=== PATIENT | female | born 1945 | race Two or more races ===

== ENCOUNTER 2022-02-20 00:21 | Inpatient (IN) | payer MEDICARE, OTHER ==
[~2022-02-20] VITALS: Ht 162.6 cm; Wt 103.4 kg
[2022-02-20] MEDS ORDERED: BENZ2TAB7 PO (01:32)
[2022-02-20] MEDS ORDERED: LISI-782 PO (01:32)
[2022-02-20] MEDS ORDERED: SERT25TA PO (01:32)
[2022-02-20] MEDS ORDERED: LEVO125T8 PO (01:32)
[2022-02-20] MEDS ORDERED: ASCO-375 PO (01:32)
[2022-02-20] MEDS ORDERED: RISP1TAB7 PO ×2 (01:32)
[2022-02-20] MEDS ORDERED: PANT40TA49 PO (01:32)
[2022-02-20] MEDS ORDERED: CLON0.5T PO (01:32)
[2022-02-20] MEDS ORDERED: FERR325T28 PO (01:32)
[2022-02-20] MEDS ORDERED: ACET-2154 PO (01:32)
[2022-02-20] MEDS ORDERED: HYDR-4075 PO (01:32)
[2022-02-20] MEDS ORDERED: ASPI81TA31 PO (01:32)
[2022-02-20 01:33] LABS: ALANINE AMINOTRANSFERASE 60 U/L (14-59); ALKALINE PHOSPHATASE 84 U/L (50-136); ASPARTATE AMINOTRANSFERASE 38 U/L (15-37); BILIRUBIN,DIRECT 0.1 mg/dL (0.0-0.2); BILIRUBIN,TOTAL 0.4 mg/dL (0.2-1.0); CARBON DIOXIDE 27 mmol/L (21-32); CHLORIDE 105 mmol/L (98-107); GLUCOSE 119 mg/dL (74-106); POTASSIUM 3.9 mmol/L (3.5-5.1); TOTAL PROTEIN, SERUM 7.6 g/dL (6.4-8.2); UREA NITROGEN, BLOOD 13 mg/dL (7-18)
[2022-02-20 01:42] LABS: THYROID STIMULATING HORMONE 4.659 mIU/mL (0.358-3.740)
[2022-02-20 01:43] LABS: HEMATOCRIT 38.2 % (31.2-41.9); MEAN CORPUSCULAR HEMOGLOBIN 28.6 uug (24.7-32.8); MEAN CORPUSCULAR VOLUME 84.6 fL (75.5-95.3); PLATELET COUNT (AUTO) 246 K/uL (179-408)
[2022-02-20 01:45] LABS: ETHANOL < 3 MG/DL (0-0)
[2022-02-20 01:52] LABS: ACETAMINOPHEN < 2.0 ug/mL (10-30)
[2022-02-20 02:39] LABS: *BILIRUBIN,URIN NEGATIVE (NEGATIVE); *BLOOD, URINE NEGATIVE (NEGATIVE); *CLARITY,URINE CLEAR (CLEAR); *COLOR,URINE YELLOW (YELLOW); *KETONES,URINE NEGATIVE (NEGATIVE); *UROBILINOGEN,URINE 0.2 E.U./dl (NORMAL); LEUKOCYTE ESTERASE ,URINE NEGATIVE (NEGATIVE); NITRITE, URINE NEGATIVE (NEGATIVE); UGLUCOSE NEGATIVE (NEGATIVE)
[2022-02-20 02:55] LABS: *AMPHETAMINE, URINE NEGATIVE (NEGATIVE); *CANNABINOID, URINE NEGATIVE (NEGATIVE); *COCCAINE, URINE NEGATIVE (NEGATIVE); *OPIATE, URINE NEGATIVE (NEGATIVE); *PHENCYCLIDINE SCREEN,URINE NEGATIVE (NEGATIVE)
--- NOTE | 2022-02-20 03:30 | NUR ---
MEDICALLY CLEARED BY DR GARRISON.
[2022-02-20] MEDS ORDERED: ACETAMINOPHEN 325 MG TABLET PO PRN (05:30)
[2022-02-20] MEDS ORDERED: MAG HYDROX/AL HYDROX/SIMETH 30 ML LIQUID UDC PO PRN (05:30)
[2022-02-20] MEDS ORDERED: MAGNESIUM HYDROXIDE 30 ML LIQUID UDC PO PRN (05:30)
[2022-02-20] MEDS ORDERED: BLOOD SUGAR DIAGNOSTIC 1 EACH STRIP VI ONE (05:30)
--- NOTE | 2022-02-20 05:49 | NUR ---
transfered to [facility] via gurny with no distress noted
[2022-02-20 06:34] VITALS: BP 150/65
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
[2022-02-20 07:38] VITALS: BP 144/50
[2022-02-20] MEDS ORDERED: BENZTROPINE MESYLATE 0.5 MG TABLET PO SCH (09:00)
[2022-02-20] MEDS ORDERED: risperiDONE 0.25 MG TABLET PO SCH (09:00)
[2022-02-20] MEDS: BENZTROPINE MESYLATE 1 MG TABLET PO SCH (13:15)
[2022-02-20] MEDS: risperiDONE 1 MG TABLET PO SCH ×2 (13:15→20:23)
[2022-02-20] MEDS: SERTRALINE HCL 50 MG TABLET PO SCH (13:16)
[2022-02-20] MEDS ORDERED: INSULIN REGULAR, HUMAN 300 UNIT/3 ML VIAL SQ PRN (13:30)
[2022-02-20] MEDS ORDERED: DEXTROSE 50% 50 ML DISP.SYRIN IV PRN (13:30)
[2022-02-20 15:51] VITALS: BP 122/48
[2022-02-20] MEDS: BLOOD SUGAR DIAGNOSTIC 1 EACH STRIP VI SCH ×2 (17:48→21:04)
--- NOTE | 2022-02-20 18:21 | NUR ---
GPS: PT SEEN TODAY ON BED, DEPRESSED, WITHDRAWN AND A BIT QUIET. ONLY GOES OUT WHEN ASKING FOR SOMETHING. PT COOPERATIVE WITH CARE. MNO AGGRESSIVE BEHAVIOR NOTED. PT COMPLIANT WITH CARE AND MEDS. SEEN PT HAD A GOOD APPETITE DURING LUNCH. DENIES SI/HI. PT ENCOURAGED MORE TO GET OUT FROM BED AND ATTEND GROUP THERAPY.
[2022-02-20 20:23] VITALS: BP 126/49
[2022-02-20] MEDS: CLONAZEPAM 0.5 MG TABLET PO PRN (21:58)
--- NOTE | 2022-02-20 23:44 | NUR ---
GPS: Pt.is alert to name and place. Guarded,suspicious when approached and when being given bedtime meds. Re-assured prn. Denies SI/HI. Poor insight to present situation. No increased agitation noted. Safety emphasized. Denies pain when asked earlier. Will continue to monitor behavior. Blood sugar checks continues and is compliant so far.
[2022-02-21] MEDS: BLOOD SUGAR DIAGNOSTIC 1 EACH STRIP VI SCH ×4 (06:34→20:21)
[2022-02-21 07:30] VITALS: BP 116/48
[2022-02-21] MEDS: SERTRALINE HCL 50 MG TABLET PO SCH (09:08)
[2022-02-21] MEDS: risperiDONE 1 MG TABLET PO SCH ×2 (09:08→20:23)
[2022-02-21] MEDS: BENZTROPINE MESYLATE 1 MG TABLET PO SCH (09:08)
[2022-02-21] MEDS ORDERED: BENZTROPINE MESYLATE 1 MG TABLET PO SCH (12:00)
[2022-02-21] MEDS: PANTOPRAZOLE SODIUM 40 MG TABLET.DR PO SCH (13:15)
[2022-02-21] MEDS: ASCORBIC ACID 500 MG TABLET PO SCH (13:15)
[2022-02-21] MEDS: FERROUS SULFATE 325 MG TABEC PO SCH (13:15)
[2022-02-21] MEDS: ASPIRIN 81 MG TAB.CHEW PO SCH (13:15)
[2022-02-21] MEDS: LEVOTHYROXINE SODIUM 125 MCG TABLET PO SCH (13:15)
[2022-02-21] MEDS: LISINOPRIL 5 MG TABLET PO SCH (13:15)
[2022-02-21] MEDS: METFORMIN HCL 500 MG TABLET PO SCH ×2 (13:16→18:29)
[2022-02-21 16:00] VITALS: BP 103/42
--- NOTE | 2022-02-21 18:48 | NUR ---
GPS: PT STAYED MOST OF THE TIME AT HER ROOM, QUIET AND DEPRESSED. ENCOURAGED PT TO ATTEND GROUP THERAPY AND PT STATED "NO". WILL ENCOURAGE MORE EVERYDAY. PT COMPLIANT WITH MEDS AND CARE. 14 DAY HOLD FILED TODAY, GIVEN A COPY AND EXPLAINED TO PT.
[2022-02-21 20:33] VITALS: BP 106/45
[2022-02-22] MEDS: LEVOTHYROXINE SODIUM 125 MCG TABLET PO SCH (06:22)
[2022-02-22] MEDS: PANTOPRAZOLE SODIUM 40 MG TABLET.DR PO SCH (06:22)
[2022-02-22] MEDS: BLOOD SUGAR DIAGNOSTIC 1 EACH STRIP VI SCH ×4 (06:30→20:12)
--- NOTE | 2022-02-22 06:42 | NUR ---
GPS: Pt.slept 6.15 last night. Remains guarded,paranoid and suspicious. Isolative and withdrawn. Does not interact with her peers. No increased agitation noted. Blood sugar checks WNL. Safety emphasized.
[2022-02-22 08:00] VITALS: BP 125/61
[2022-02-22] MEDS: METFORMIN HCL 500 MG TABLET PO SCH ×2 (08:07→17:26)
[2022-02-22] MEDS: BENZTROPINE MESYLATE 1 MG TABLET PO SCH (08:37)
[2022-02-22] MEDS: ASPIRIN 81 MG TAB.CHEW PO SCH (08:37)
[2022-02-22] MEDS: risperiDONE 1 MG TABLET PO SCH ×2 (08:37→20:12)
[2022-02-22] MEDS: SERTRALINE HCL 50 MG TABLET PO SCH (08:37)
[2022-02-22] MEDS: ASCORBIC ACID 500 MG TABLET PO SCH (08:37)
[2022-02-22] MEDS: FERROUS SULFATE 325 MG TABEC PO SCH (08:37)
[2022-02-22] MEDS: LISINOPRIL 5 MG TABLET PO SCH (08:43)
[2022-02-22 16:00] VITALS: BP 108/45
--- NOTE | 2022-02-22 17:06 | NUR ---
GPS: PT REMAIN ISOLATIVE AND DEPRESSED. STAYED MOST OF THE TIME AT HER ROOM, ENCOURAGED PATIENT TO ATTEND GROUP THERAPY AND PT STATED REFUSED TO ATTEND. PT COMPLIANT WITH MEDS AND CARE. TOOK SHOWER TO DAY. CONTINUE PLAN OF CARE.
[2022-02-22 19:50] VITALS: BP 112/45
[2022-02-22] MEDS: CLONAZEPAM 0.5 MG TABLET PO PRN (20:12)
--- NOTE | 2022-02-22 20:28 | NUR ---
GPS: Remains paranoid,suspicious,isolative and withdrawn. Refuses to get out of her room when encouraged to. Does not interact with her peers. Denies HI. Takes meds. reluctantly. Safe environment provided. Will continue to monitor.
[2022-02-23] MEDS: PANTOPRAZOLE SODIUM 40 MG TABLET.DR PO SCH (06:25)
[2022-02-23] MEDS: LEVOTHYROXINE SODIUM 125 MCG TABLET PO SCH (06:25)
[2022-02-23] MEDS: BLOOD SUGAR DIAGNOSTIC 1 EACH STRIP VI SCH ×4 (06:32→20:33)
[2022-02-23 07:30] VITALS: BP 116/46
[2022-02-23] MEDS: SERTRALINE HCL 50 MG TABLET PO SCH (08:34)
[2022-02-23] MEDS: BENZTROPINE MESYLATE 1 MG TABLET PO SCH (08:34)
[2022-02-23] MEDS: ASPIRIN 81 MG TAB.CHEW PO SCH (08:34)
[2022-02-23] MEDS: METFORMIN HCL 500 MG TABLET PO SCH ×2 (08:37→17:33)
[2022-02-23] MEDS: FERROUS SULFATE 325 MG TABEC PO SCH (08:37)
[2022-02-23] MEDS: LISINOPRIL 5 MG TABLET PO SCH (08:37)
[2022-02-23] MEDS: risperiDONE 1 MG TABLET PO SCH ×2 (08:37→20:33)
[2022-02-23] MEDS: ASCORBIC ACID 500 MG TABLET PO SCH (08:38)
--- NOTE | 2022-02-23 14:58 | NUR ---
GILDARDO Initial Discharge Note: Patient currently resides at [address] [id number] . GILDARDO will contact the patient's daughter, Dennis Ortiz ([phone]) to discuss pt's discharge plan. Patient states she does not want to return to [facility]. GILDARDO will continue to work with patient, family, and MD to ensure a safe and proper discharge plan.
[2022-02-23 15:13] VITALS: BP 128/58
--- NOTE | 2022-02-23 15:35 | NUR ---
Firearms Report: Tetryl Dissolver Operator completed and submitted a [employer] firearms report for 5150 grave disability and danger to others certifications. A copy of report has been placed in patient chart.
--- NOTE | 2022-02-23 17:59 | NUR ---
Patient had 5250 probable cause hearing today and it was upheld for grave disability .
[2022-02-23] MEDS: TEMAZEPAM 7.5 MG CAPSULE PO PRN (20:33)
[2022-02-23 22:09] VITALS: BP 121/45
--- NOTE | 2022-02-24 04:39 | NUR ---
Received in her room, awake, A&Ox2. She is pleasant upon approached, she is calm and able to make needs known. [id number]. Offered snacks and fluid w/ compliance. She slept most during shift. Closely monitoring observed.
[2022-02-24] MEDS: PANTOPRAZOLE SODIUM 40 MG TABLET.DR PO SCH (06:07)
[2022-02-24] MEDS: LEVOTHYROXINE SODIUM 125 MCG TABLET PO SCH (06:07)
[2022-02-24] MEDS: BLOOD SUGAR DIAGNOSTIC 1 EACH STRIP VI SCH (06:55)
[2022-02-24 07:35] VITALS: BP 131/54
[2022-02-24] MEDS: risperiDONE 1 MG TABLET PO SCH ×2 (08:45→20:25)
[2022-02-24] MEDS: METFORMIN HCL 500 MG TABLET PO SCH ×2 (08:45→17:04)
[2022-02-24] MEDS: ASCORBIC ACID 500 MG TABLET PO SCH (08:45)
[2022-02-24] MEDS: ASPIRIN 81 MG TAB.CHEW PO SCH (08:45)
[2022-02-24] MEDS: LISINOPRIL 5 MG TABLET PO SCH (08:46)
[2022-02-24] MEDS: FERROUS SULFATE 325 MG TABEC PO SCH (08:46)
[2022-02-24] MEDS: SERTRALINE HCL 50 MG TABLET PO SCH (08:46)
[2022-02-24] MEDS: BENZTROPINE MESYLATE 1 MG TABLET PO SCH (08:46)
--- NOTE | 2022-02-24 15:14 | NUR ---
GPS: Nursing Notes: Thought Disorder: Patient is awake and responding to her name, compliant with her medications, eating well at least 75% or more of her meals, isolative and withdrawn in her room, needs a lot prompting to participate in therapeutic groups, no interactions with peers, unable to formulate a viable plan for self care, no episode of violent behavior noted, continue to monitor for safety, slightly paranoid at times, internally preoccupied, but compliant with her care, continue with treatment plan.
[2022-02-24 16:25] VITALS: BP 117/58
[2022-02-24 20:13] VITALS: BP 103/41
[2022-02-24] MEDS: TEMAZEPAM 7.5 MG CAPSULE PO PRN (20:25)
--- NOTE | 2022-02-25 03:50 | NUR ---
GPS NOTES: Patient is quiet, withdrawn and guarded. Interacts when engaged. She is calm and approachable. Patient request for fluids and snacks, good appetite noted. She is med compliant. Prn temazepam given. Slept well during shift. Frequent monitoring in place.
[2022-02-25] MEDS: PANTOPRAZOLE SODIUM 40 MG TABLET.DR PO SCH (06:16)
[2022-02-25] MEDS: LEVOTHYROXINE SODIUM 125 MCG TABLET PO SCH (06:16)
[2022-02-25 07:57] VITALS: BP 156/68
[2022-02-25] MEDS: ASCORBIC ACID 500 MG TABLET PO SCH (08:33)
[2022-02-25] MEDS: SERTRALINE HCL 50 MG TABLET PO SCH (08:33)
[2022-02-25] MEDS: METFORMIN HCL 500 MG TABLET PO SCH ×2 (08:33→17:22)
[2022-02-25] MEDS: risperiDONE 1 MG TABLET PO SCH ×2 (08:33→20:23)
[2022-02-25] MEDS: FERROUS SULFATE 325 MG TABEC PO SCH (08:34)
[2022-02-25] MEDS: ASPIRIN 81 MG TAB.CHEW PO SCH (08:34)
[2022-02-25] MEDS: BENZTROPINE MESYLATE 1 MG TABLET PO SCH (08:34)
[2022-02-25] MEDS: LISINOPRIL 5 MG TABLET PO SCH (08:34)
--- NOTE | 2022-02-25 14:52 | NUR ---
GPS: Nursing Notes: Thought Disorder: Patient is awake and responding to her name, isolative and withdrawn in her room, when asked about her coughing during the night, stated "I do not cough... I am fine.. Other person mentally is making me cough.. No, I am not hearing voices...", redirected during shift, low energy level, depressed mood and flat affect, needs a lot of prompting to participate in therapeutic groups, compliant with her medications, eating at least 75% or more of her meal trays, no interactions with peers, continue to monitor for safety, continue with treatment plan.
[2022-02-25 17:47] VITALS: BP 104/42
[2022-02-25 20:34] VITALS: BP 123/46
[2022-02-26] MEDS: LEVOTHYROXINE SODIUM 125 MCG TABLET PO SCH (06:40)
[2022-02-26] MEDS: PANTOPRAZOLE SODIUM 40 MG TABLET.DR PO SCH (06:40)
[2022-02-26 07:30] VITALS: BP 139/51
[2022-02-26] MEDS: METFORMIN HCL 500 MG TABLET PO SCH ×2 (08:44→17:11)
[2022-02-26] MEDS: ASPIRIN 81 MG TAB.CHEW PO SCH (08:44)
[2022-02-26] MEDS: FERROUS SULFATE 325 MG TABEC PO SCH (08:44)
[2022-02-26] MEDS: BENZTROPINE MESYLATE 1 MG TABLET PO SCH (08:45)
[2022-02-26] MEDS: risperiDONE 1 MG TABLET PO SCH ×2 (08:45→20:04)
[2022-02-26] MEDS: LISINOPRIL 5 MG TABLET PO SCH (08:45)
[2022-02-26] MEDS: ASCORBIC ACID 500 MG TABLET PO SCH (08:45)
[2022-02-26] MEDS: SERTRALINE HCL 50 MG TABLET PO SCH (08:45)
--- NOTE | 2022-02-26 12:25 | NUR ---
GPS: Nursing Notes: Thought Disorder: Patient is awake and responding to her name, isolative and withdrawn in her room, resistant with nursing care, depressed mood and flat affect, no interactions with peers, suspicious, but compliant with her medications, eating at least 75% or more of her meal trays, stated to staff that "she does not have a cough, but somebody mentally is making her cough at times," redirected during shift, unable to formulate a viable plan for self care, continue to monitor for safety, continue with treatment plan.
[2022-02-26 15:09] VITALS: BP 112/50
[2022-02-26 20:00] VITALS: BP 121/48
[2022-02-27] MEDS: LEVOTHYROXINE SODIUM 125 MCG TABLET PO SCH (06:26)
[2022-02-27] MEDS: PANTOPRAZOLE SODIUM 40 MG TABLET.DR PO SCH (06:26)
[2022-02-27 07:30] VITALS: BP 115/47
[2022-02-27] MEDS: METFORMIN HCL 500 MG TABLET PO SCH ×2 (08:36→17:30)
[2022-02-27] MEDS: ASPIRIN 81 MG TAB.CHEW PO SCH (08:36)
[2022-02-27] MEDS: FERROUS SULFATE 325 MG TABEC PO SCH (08:36)
[2022-02-27] MEDS: risperiDONE 1 MG TABLET PO SCH ×2 (08:37→20:13)
[2022-02-27] MEDS: SERTRALINE HCL 50 MG TABLET PO SCH (08:37)
[2022-02-27] MEDS: BENZTROPINE MESYLATE 1 MG TABLET PO SCH (08:37)
[2022-02-27] MEDS: ASCORBIC ACID 500 MG TABLET PO SCH (08:37)
[2022-02-27] MEDS: LISINOPRIL 5 MG TABLET PO SCH (08:37)
--- NOTE | 2022-02-27 14:16 | NUR ---
GPS: Nursing Notes: Thought Disorder: Patient is awake and responding to his name, isolative and withdrawn in her room, no interactions with peers, but patient is compliant with her medications, eating at least 75% or more of her meal trays, needs prompting for minimal participation in therapeutic groups, stated "Yes, I am feeling fine..", unable to formulate a viable plan for self care, continue to monitor for safety, continue with treatment plan.
[2022-02-27 15:34] VITALS: BP 111/57
[2022-02-27 19:56] VITALS: BP 142/60
--- NOTE | 2022-02-27 21:10 | NUR ---
GPS: Med.compliant. Less paranoid and suspicious. Re-assured prn. Encouraged to attend activities during the day. Safe environment provided. No aggressive behavior noted.
[2022-02-28] MEDS: PANTOPRAZOLE SODIUM 40 MG TABLET.DR PO SCH (06:40)
[2022-02-28] MEDS: LEVOTHYROXINE SODIUM 125 MCG TABLET PO SCH (06:40)
[2022-02-28 07:29] LABS: HEMATOCRIT 36.9 % (31.2-41.9); MEAN CORPUSCULAR HEMOGLOBIN 28.6 uug (24.7-32.8); MEAN CORPUSCULAR VOLUME 85.4 fL (75.5-95.3); PLATELET COUNT (AUTO) 197 K/uL (179-408)
[2022-02-28 07:30] VITALS: BP 144/50
[2022-02-28] MEDS: METFORMIN HCL 500 MG TABLET PO SCH ×3 (08:00→19:13)
[2022-02-28 08:33] LABS: BILIRUBIN,TOTAL 0.4 mg/dL (0.2-1.0); MAGNESIUM 1.9 mg/dL (1.8-2.4); PHOSPHOROUS 4.3 mg/dL (2.5-4.9); POTASSIUM 4.2 mmol/L (3.5-5.1); TOTAL PROTEIN, SERUM 7.1 g/dL (6.4-8.2)
[2022-02-28] MEDS: FERROUS SULFATE 325 MG TABEC PO SCH (10:29)
[2022-02-28] MEDS: ASCORBIC ACID 500 MG TABLET PO SCH (10:29)
[2022-02-28] MEDS: ASPIRIN 81 MG TAB.CHEW PO SCH (10:29)
[2022-02-28] MEDS: LISINOPRIL 5 MG TABLET PO SCH (10:30)
[2022-02-28] MEDS: SERTRALINE HCL 50 MG TABLET PO SCH (10:30)
[2022-02-28] MEDS: risperiDONE 1 MG TABLET PO SCH ×2 (10:31→21:03)
[2022-02-28] MEDS: BENZTROPINE MESYLATE 1 MG TABLET PO SCH (10:31)
--- NOTE | 2022-02-28 14:02 | NUR ---
GILDARDO Family Contact: Pt's daughter, Gia/conservator ([phone]) returned this tag writer's call and confirmed that she is the conservator for the pt for the past 21 years. GILDARDO informed her that this tag writer has the paperwork from [facility]. Gia confirmed that pt will return to [facility] upon discharge. Gia is aware of patients current discharge plan and treatment. Gia also spoke with patients nurse and is aware of the treatment plan.
[2022-02-28 16:00] VITALS: BP 107/50
[2022-02-28 20:00] VITALS: BP 123/45
[2022-03-01] MEDS: LEVOTHYROXINE SODIUM 125 MCG TABLET PO SCH (06:32)
[2022-03-01] MEDS: PANTOPRAZOLE SODIUM 40 MG TABLET.DR PO SCH (06:32)
[2022-03-01 07:30] VITALS: BP 121/40
[2022-03-01] MEDS: METFORMIN HCL 500 MG TABLET PO SCH ×2 (08:21→17:27)
[2022-03-01] MEDS: LISINOPRIL 5 MG TABLET PO SCH (08:21)
[2022-03-01] MEDS: ASPIRIN 81 MG TAB.CHEW PO SCH (08:21)
[2022-03-01] MEDS: FERROUS SULFATE 325 MG TABEC PO SCH (08:22)
[2022-03-01] MEDS: ASCORBIC ACID 500 MG TABLET PO SCH (08:22)
[2022-03-01] MEDS: risperiDONE 1 MG TABLET PO SCH ×2 (08:22→21:52)
[2022-03-01] MEDS: SERTRALINE HCL 50 MG TABLET PO SCH (08:25)
[2022-03-01] MEDS: BENZTROPINE MESYLATE 1 MG TABLET PO SCH (08:25)
--- NOTE | 2022-03-01 15:30 | NUR ---
Gps/Rough Rounder- Had been cooperative with the staff, flat, guarded, interacts when engaged, encouraged participation in her group therapy Denies any discomfort. Ambulates around , in and out of her room.
--- NOTE | 2022-03-01 15:46 | NUR ---
Gps/Food Service- Patient's DPOA Gia called wants to know patient's progress, and requesting to talk to the Psychiatrist if and when pt. will be ready to go back to the facility.(Gia -DPOA [phone])
[2022-03-01 16:02] VITALS: BP 121/55
[2022-03-01 20:17] VITALS: BP 136/46
--- NOTE | 2022-03-01 20:30 | NUR ---
Received patient in her room sitting in her bed. she is noted A/O x1 to 2. able to verbalized her feelings. patient noted with flat affect, she appears depressed. she is suspicious and guarded. upon interview patient stated, "I am here because some people made up bad stories about me. it is all made up". patient noted with impaired insight and judgment into her admission to mhu. patient was reassured for her safety. safety and fall precautions are in place. her V/S are stable, patient in no distress. He was given PO Fluids and snacks. will continue to monitor.
[2022-03-02] MEDS: PANTOPRAZOLE SODIUM 40 MG TABLET.DR PO SCH (06:12)
[2022-03-02] MEDS: LEVOTHYROXINE SODIUM 125 MCG TABLET PO SCH (06:12)
[2022-03-02 07:30] VITALS: BP 105/48
[2022-03-02] MEDS: ASCORBIC ACID 500 MG TABLET PO SCH (08:26)
[2022-03-02] MEDS: METFORMIN HCL 500 MG TABLET PO SCH ×2 (08:27→17:17)
[2022-03-02] MEDS: ASPIRIN 81 MG TAB.CHEW PO SCH (08:27)
[2022-03-02] MEDS: FERROUS SULFATE 325 MG TABEC PO SCH (08:27)
[2022-03-02] MEDS: risperiDONE 1 MG TABLET PO SCH ×2 (08:27→20:34)
[2022-03-02] MEDS: SERTRALINE HCL 50 MG TABLET PO SCH (08:30)
[2022-03-02] MEDS: LISINOPRIL 5 MG TABLET PO SCH (08:33)
[2022-03-02] MEDS: BENZTROPINE MESYLATE 1 MG TABLET PO SCH (08:33)
--- NOTE | 2022-03-02 12:27 | NUR ---
Gps/Silo Worker- Groomed self after set up, refused to attend group therapy, preferred to stay in her room during meals. Had been compliant with her routine meds. Denies any discomfort, remains guarded .
[2022-03-02 15:26] VITALS: BP 127/60
[2022-03-02 20:37] VITALS: BP 106/46
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
[2022-03-03] MEDS: LEVOTHYROXINE SODIUM 125 MCG TABLET PO SCH (06:03)
[2022-03-03] MEDS: PANTOPRAZOLE SODIUM 40 MG TABLET.DR PO SCH (06:03)
--- NOTE | 2022-03-03 06:46 | NUR ---
patient slept for approx. 7.45 hrs through the night. After multiple redirections, patient was able to shower. she continue isolative and withdrawn. she remains in her room most of the time. she is able to comply with medication regiment diet and care. will continue to monitor.
[2022-03-03 07:30] VITALS: BP 95/53
[2022-03-03] MEDS: METFORMIN HCL 500 MG TABLET PO SCH ×2 (08:24→17:23)
[2022-03-03] MEDS: ASPIRIN 81 MG TAB.CHEW PO SCH (08:24)
[2022-03-03] MEDS: ASCORBIC ACID 500 MG TABLET PO SCH (08:25)
[2022-03-03] MEDS: SERTRALINE HCL 50 MG TABLET PO SCH (08:25)
[2022-03-03] MEDS: BENZTROPINE MESYLATE 1 MG TABLET PO SCH (08:26)
[2022-03-03] MEDS: FERROUS SULFATE 325 MG TABEC PO SCH (08:26)
[2022-03-03] MEDS: LISINOPRIL 5 MG TABLET PO SCH (08:27)
[2022-03-03] MEDS: risperiDONE 1 MG TABLET PO SCH ×2 (08:28→20:17)
[2022-03-03 13:00] VITALS: BP 116/41
--- NOTE | 2022-03-03 16:00 | NUR ---
Gps/Director Federal- Preferred to stay in her room , in bed , quiet, comes out to the Nurses station making her simple needs known to the staff. Encouraged to attend her group therapy, remains flat, guarded .
[2022-03-03 20:00] VITALS: BP 118/52
--- NOTE | 2022-03-04 02:42 | NUR ---
Received patient in room and sitting on the edge of the bed. The patient isolates all day and refused to come out of the room alone. This writer technical publications provided reassurance but the patient is clearly paranoid and is hearing voices. The patient is labile and childlike. At times angry and unable to formulate the words or give any rational explanation. Safety stratiges are in place and continuing to talk with the patient and use reality conversation only.
[2022-03-04] MEDS: LEVOTHYROXINE SODIUM 125 MCG TABLET PO SCH (06:06)
[2022-03-04] MEDS: PANTOPRAZOLE SODIUM 40 MG TABLET.DR PO SCH (06:06)
[2022-03-04 07:30] VITALS: BP_SYST 140; BP_DIAS 56; BP_DIAS 6
[2022-03-04] MEDS: ASCORBIC ACID 500 MG TABLET PO SCH (08:15)
[2022-03-04] MEDS: METFORMIN HCL 500 MG TABLET PO SCH ×2 (08:15→17:13)
[2022-03-04] MEDS: risperiDONE 1 MG TABLET PO SCH ×2 (08:15→21:24)
[2022-03-04] MEDS: FERROUS SULFATE 325 MG TABEC PO SCH (08:15)
[2022-03-04] MEDS: ASPIRIN 81 MG TAB.CHEW PO SCH (08:16)
[2022-03-04] MEDS: SERTRALINE HCL 50 MG TABLET PO SCH (08:16)
[2022-03-04] MEDS: BENZTROPINE MESYLATE 1 MG TABLET PO SCH (08:16)
[2022-03-04] MEDS: LISINOPRIL 5 MG TABLET PO SCH (08:20)
[2022-03-04 16:00] VITALS: BP 99/37
[2022-03-04 20:20] VITALS: BP 111/45
[2022-03-05] MEDS: LEVOTHYROXINE SODIUM 125 MCG TABLET PO SCH (06:36)
[2022-03-05] MEDS: PANTOPRAZOLE SODIUM 40 MG TABLET.DR PO SCH (06:36)
[2022-03-05 07:30] VITALS: BP 115/51
[2022-03-05] MEDS: ASPIRIN 81 MG TAB.CHEW PO SCH (08:47)
[2022-03-05] MEDS: ASCORBIC ACID 500 MG TABLET PO SCH (08:47)
[2022-03-05] MEDS: LISINOPRIL 5 MG TABLET PO SCH (08:47)
[2022-03-05] MEDS: FERROUS SULFATE 325 MG TABEC PO SCH (08:48)
[2022-03-05] MEDS: BENZTROPINE MESYLATE 1 MG TABLET PO SCH (08:48)
[2022-03-05] MEDS: METFORMIN HCL 500 MG TABLET PO SCH ×2 (08:48→17:40)
[2022-03-05] MEDS: SERTRALINE HCL 50 MG TABLET PO SCH (08:48)
[2022-03-05] MEDS: risperiDONE 1 MG TABLET PO SCH ×2 (08:48→20:34)
[2022-03-05] MEDS ORDERED: NYSTATIN SUSPENSION 5 ML LIQUID UDC PO SCH (13:00)
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
[2022-03-05 15:41] VITALS: BP 116/52
[2022-03-05 20:15] VITALS: BP 119/50
[2022-03-06] MEDS: LEVOTHYROXINE SODIUM 125 MCG TABLET PO SCH (06:20)
[2022-03-06] MEDS: PANTOPRAZOLE SODIUM 40 MG TABLET.DR PO SCH (06:20)
--- NOTE | 2022-03-06 06:30 | NUR ---
GPS: Pt.slept 8 hrs.last night. Remains paranoid and suspicious. Med.compliant. Re-assured prn. Safe environment provided. Denies feeling depressed when asked. Will continue to monitor.
[2022-03-06 07:30] VITALS: BP_SYST 114; BP_SYST 139; BP_DIAS 49; BP_DIAS 68
[2022-03-06] MEDS: ASPIRIN 81 MG TAB.CHEW PO SCH (09:33)
[2022-03-06] MEDS: risperiDONE 1 MG TABLET PO SCH ×2 (09:34→20:11)
[2022-03-06] MEDS: FERROUS SULFATE 325 MG TABEC PO SCH (09:34)
[2022-03-06] MEDS: BENZTROPINE MESYLATE 1 MG TABLET PO SCH (09:34)
[2022-03-06] MEDS: METFORMIN HCL 500 MG TABLET PO SCH ×2 (09:34→17:06)
[2022-03-06] MEDS: LISINOPRIL 5 MG TABLET PO SCH (09:34)
[2022-03-06] MEDS: ASCORBIC ACID 500 MG TABLET PO SCH (09:34)
[2022-03-06] MEDS: SERTRALINE HCL 50 MG TABLET PO SCH (09:34)
[2022-03-06 17:00] VITALS: BP 123/48
--- NOTE | 2022-03-06 17:52 | NUR ---
GPS: Nursing Notes: Thought Disorder: Patient is awake and responding to her name, isolative in her room, compliant with her medications, following staff directions, but refusing to participate in therapeutic groups, no interactions with peers, unable to formulate a viable plan for self care, continue to monitor for safety, continue with treatment plan.
[2022-03-06 20:09] VITALS: BP 120/49
[2022-03-07] MEDS: PANTOPRAZOLE SODIUM 40 MG TABLET.DR PO SCH (06:06)
[2022-03-07] MEDS: LEVOTHYROXINE SODIUM 125 MCG TABLET PO SCH (06:06)
[2022-03-07 07:30] VITALS: BP 127/45
[2022-03-07] MEDS: risperiDONE 1 MG TABLET PO SCH ×2 (10:42→20:11)
[2022-03-07] MEDS: ASPIRIN 81 MG TAB.CHEW PO SCH (10:42)
[2022-03-07] MEDS: SERTRALINE HCL 50 MG TABLET PO SCH (10:42)
[2022-03-07] MEDS: FERROUS SULFATE 325 MG TABEC PO SCH (10:43)
[2022-03-07] MEDS: BENZTROPINE MESYLATE 1 MG TABLET PO SCH (10:43)
[2022-03-07] MEDS: ASCORBIC ACID 500 MG TABLET PO SCH (10:44)
[2022-03-07] MEDS: LISINOPRIL 5 MG TABLET PO SCH (10:59)
[2022-03-07] MEDS: METFORMIN HCL 500 MG TABLET PO SCH ×2 (11:00→18:05)
--- NOTE | 2022-03-07 15:07 | NUR ---
SW Family Contact: Pt's daughter, Gia/conservator ([phone]) returned this short story writer's call and provided the updated conservator paperwork via email. This SW placed a copy in the patient's chart. Gia stated she received all of this short story writer's previous voicemails with discharge updates. Gia provided this SW with her home phone as well: ([phone]). Gia is aware and agreeable that pt's discharge to [facility] is pending and that this SW will update her with a new discharge date when pt is stable for discharge.
[2022-03-07 16:00] VITALS: BP 103/40
[2022-03-07 21:11] VITALS: BP 119/61
[2022-03-08] MEDS: PANTOPRAZOLE SODIUM 40 MG TABLET.DR PO SCH (06:05)
[2022-03-08] MEDS: LEVOTHYROXINE SODIUM 125 MCG TABLET PO SCH (06:05)
--- NOTE | 2022-03-08 06:48 | NUR ---
GPS: Pt.slept for 8 hrs.last night. No new behavioral problems exhibited. Denies SI/HI. Will continue to monitor.
[2022-03-08 07:30] VITALS: BP 118/46
[2022-03-08] MEDS: ASPIRIN 81 MG TAB.CHEW PO SCH (09:02)
[2022-03-08] MEDS: METFORMIN HCL 500 MG TABLET PO SCH ×2 (09:02→17:11)
[2022-03-08] MEDS: FERROUS SULFATE 325 MG TABEC PO SCH (09:02)
[2022-03-08] MEDS: BENZTROPINE MESYLATE 1 MG TABLET PO SCH (09:02)
[2022-03-08] MEDS: ASCORBIC ACID 500 MG TABLET PO SCH (09:02)
[2022-03-08] MEDS: risperiDONE 1 MG TABLET PO SCH ×2 (09:03→20:01)
[2022-03-08] MEDS: SERTRALINE HCL 50 MG TABLET PO SCH (09:04)
[2022-03-08] MEDS: LISINOPRIL 5 MG TABLET PO SCH (09:06)
--- NOTE | 2022-03-08 14:57 | NUR ---
Gps/Operating Room Technologist- Staying in her room most of the day, encouraged to participate in her group therapy, pt. refused . Compliant with her routine medications , interacts when engaged.
--- NOTE | 2022-03-08 15:32 | NUR ---
GILDARDO Family Contact: GILDARDO contacted Pt's daughter, Alex/conservator ([phone]) H:([phone]) and left a voicemail on both phone numbers per alex's request. GILDARDO informed alex of the discharge details to [facility] tomorrow at 11am. Alex was informed yesterday that pt may discharge this week and she was agreeable.
[2022-03-08 16:31] VITALS: BP 102/56
[2022-03-08 20:29] VITALS: BP 133/52
[2022-03-09] MEDS: LEVOTHYROXINE SODIUM 125 MCG TABLET PO SCH (06:11)
[2022-03-09] MEDS: PANTOPRAZOLE SODIUM 40 MG TABLET.DR PO SCH (06:11)
--- NOTE | 2022-03-09 06:50 | NUR ---
GPS: Pt.slept 8.15 last night. Denies SI. No aggressive behavior noted. Safe environment provided. Needs attended. Will continue to monitor.
[2022-03-09 07:30] VITALS: BP 113/44
[2022-03-09 09:00] VITALS: BP 113/44
[2022-03-09] MEDS: LISINOPRIL 5 MG TABLET PO SCH (09:00)
[2022-03-09] MEDS: ASPIRIN 81 MG TAB.CHEW PO SCH (09:04)
[2022-03-09] MEDS: METFORMIN HCL 500 MG TABLET PO SCH (09:05)
[2022-03-09] MEDS: FERROUS SULFATE 325 MG TABEC PO SCH (09:05)
[2022-03-09] MEDS: BENZTROPINE MESYLATE 1 MG TABLET PO SCH (09:05)
[2022-03-09] MEDS: ASCORBIC ACID 500 MG TABLET PO SCH (09:05)
[2022-03-09] MEDS: SERTRALINE HCL 50 MG TABLET PO SCH (09:06)
[2022-03-09] MEDS: risperiDONE 1 MG TABLET PO SCH (09:10)
[2022-03-09] MEDS: CLONAZEPAM 0.5 MG TABLET PO PRN (12:25)
--- NOTE | 2022-03-09 13:00 | NUR ---
TGps/Sales Associate- Report was given to Nurse Roque. All belongings given back to patient. Hesitancy noted when informed of dc. plan, patient was reassured
--- NOTE | 2022-03-09 13:45 | NUR ---
Gps/Educational Diagnostician- Discharged to [facility] via ambulance, in no sing of any distress no discomfort, well informed of her discharged plan, patient requesting to be discharged to [place], patient informed she is going back to [facility]. all belongings and valuables given back to patient no complaints noted.
== END 2022-03-09 13:45 | DRG 885 ==
LOC: ER 00:52 → GPS 04:00
PROVIDERS: ADMIT Nurse Practitioner Psychiatric/Mental Health
DX: F20.9 Schizophrenia, unspecified (principal); F33.9 Major depressive disorder, recurrent, unspecified; E11.9 Type 2 diabetes mellitus without complications; E03.9 Hypothyroidism, unspecified; D64.9 Anemia, unspecified; E66.9 Obesity, unspecified; F41.9 Anxiety disorder, unspecified; G47.00 Insomnia, unspecified; I10 Essential (primary) hypertension; K21.9 Gastro-esophageal reflux disease without esophagitis; Z87.891 Personal history of nicotine dependence; Z73.6 Limitation of activities due to disability; F29 Unspecified psychosis not due to a substance or known physiological condition; Z20.822 Contact with and (suspected) exposure to COVID-19; R41.9 Unspecified symptoms and signs involving cognitive functions and awareness; Z68.39 Body mass index [BMI] 39.0-39.9, adult
CPT/HCPCS: 36415; 83735; 84100; 84443; 85025; A4663; G0480; J1815